=== PATIENT | female | born 1990 | race Asian ===

== ENCOUNTER 2020-09-29 16:54 | Emergency (ER) | payer MEDICAID ==
[~2020-09-29] VITALS: Ht 167.6 cm; Wt 49.9 kg
[2020-09-29 17:08] VITALS: Ht 167.6 cm; Wt 49.9 kg
[2020-09-29 18:43] VITALS: BP 120/99
== END 2020-09-29 18:43 | disposition home or self-care (01) ==
LOC: ED 16:54
DX: F41.9 Anxiety disorder, unspecified (principal); R06.4 Hyperventilation